=== PATIENT | female | born 1970 | race Caucasian/White ===

== ENCOUNTER 2024-10-17 16:32 | Emergency (ER) | payer OTHER, SELFPAY ==
[2024-10-17 16:47] VITALS: BP 157/73; PULSE 80; RESP 18; TEMP 36.4; O2SAT 99; BMI 27.4
--- NOTE | 2024-10-17 18:05 | DI.CT.S_ITS ---
PROCEDURE: CT HEAD/BRAIN WO CON INDICATIONS: fall hit head TECHNIQUE: Noncontrast 4.5 mm thick angled axial sections acquired from the foramen magnum to the vertex, with coronal and sagittal reformats. For radiation dose reduction, the following was used: automated exposure control, adjustment of mA and/or kV according to patient size. COMPARISON: None. FINDINGS: Image quality: Diagnostic. CSF spaces: Basal cisterns are patent. No extra-axial fluid collections. Ventricles are normal in size and shape. Brain: No midline shift. No intracranial masses or hemorrhage. Ye-white matter interface is normal. Skull and face: Calvarium and visualized facial bones are intact, without suspicious lesions. Sinuses: Visualized sinuses and mastoids are clear. IMPRESSION: No acute intracranial pathology. Dictated by: Josiah Atkins M.D. on 10/17/2024 at 18:22 Approved by: Josiah Atkins M.D. on 10/17/2024 at 18:22
--- NOTE | 2024-10-17 18:14 | DI.CT.S_ITS ---
PROCEDURE: CT CERVICAL SPINE WO CON INDICATIONS: neck pain, s/p fall TECHNIQUE: Noncontrast 3 mm thick sections acquired from the skull base to the T4 level. Sagittal and coronal reformats were then constructed. For radiation dose reduction, the following was used: automated exposure control, adjustment of mA and/or kV according to patient size. COMPARISON: None. FINDINGS: Image quality: Excellent. Bones: No fractures or dislocations. Straightening of normal cervical lordosis is seen. Degenerative endplate changes, loss of disc height and bilateral uncovertebral hypertrophic changes are noted at C5-6 and C6-7 levels causing [id number] central canal stenosis and bilateral neural foraminal narrowing. Visualized superior ribs are intact. Soft tissues: Prevertebral soft tissues are normal in thickness. No paravertebral hematomas. No apical pneumothoraces. IMPRESSION: 1. No displaced fracture or traumatic subluxation. 2. Degenerative disc disease in lower cervical spine as above. Dictated by: Josiah Atkins M.D. on 10/17/2024 at 18:22 Approved by: Josiah Atkins M.D. on 10/17/2024 at 18:23
--- NOTE | 2024-10-17 19:27 | ED.FALL ---
HPI - Fall General Chief Complaint: Fall Stated Complaint: fell at work, pain Time Seen by Provider: 10/17/24 18:05 Source: patient, RN notes reviewed and old records reviewed Mode of arrival: Ambulatory Limitations: no limitations History of Present Illness HPI Narrative: 53-year-old female no reported medical issues who presents with complaint of fall at work. Patient was leaving the kitchen when she tripped or fell on the edge of a rug falling towards her right side striking her cheek shoulder and head. She states it landed on her back as well. Describes little bit of headache neck pain and back pain throughout. States sort of knocked the wind out of her and she saw store stars initially. She felt little bit dizzy that has improved. No nausea or vomiting. No chest pain or shortness of breath. No GI or urinary symptoms otherwise no incontinence. No numbness tingling or weakness. Patient states Tylenol after the fall this evening. States other symptoms currently. She does not take any daily medications. Does not tolerate codeine well but no other drug allergies. Does use tobacco. No anticoagulants Related Data Allergies Allergy/AdvReac Type Severity Reaction Status Date / Time codeine AdvReac Nausea Verified 10/17/24 16:47 Review of Systems Review of Systems ROS Unobtainable: All systems reviewed & are unremarkable except as noted in HPI and below Patient History Social History Smoking Status: Current every day smoker Smoking Status: Current every day smoker tobacco type: vaping Exam Narrative Exam Narrative: GEN: C-collar in ED Patient appears in mild distress. HEAD: No evidence of trauma, no raccoon/[place] sign. NECK: Nontender, painless range of motion, trachea midline Positive Nexus criteria, no midline line tenderness, distracting injury, altered mental status, neuro deficit, recent EtOH. EYES: PERRLA, EOMI ENT: External inspection normal suffer a small area of erythema on the right cheek, trachea is midline, TM's are normal no hemotypanum, Nares are clear, no septal hematoma, no dental or oral injury, airway is normal and with normal occlusion, No bony tenderness RESP: Chest is nontender and has symmetric movement, no ecchymosis, breath sounds are normal no crackles, wheezes or rales CVS: Heart sounds are normal, no murmur noted, No JVD. ABG/GI: Nontender, soft, normal bowel sounds, no distention, no organomegaly NEURO: Oriented AOx3, neuro is grossly intact, sensation and motor is normal all 4 extremities moving, cranial nerves II through XII are intact, GCS is 15 PSYCH: Normal mood and affect SKIN: Intact, warm and dry, no crepitus and without decubitus BACK: No CVA tenderness, no vertebral tenderness, no step-off's, no crepitus EXT: Atraumatic, nontender. Normal color and temperature, normal range of motion of extremities. Initial Vital Signs Initial Vital Signs: Vital Signs Temperature 97.5 F L 10/17/24 16:47 Pulse Rate 80 10/17/24 16:47 Respiratory Rate 18 10/17/24 16:47 Blood Pressure 157/73 H 10/17/24 16:47 Pulse Oximetry 99 10/17/24 16:47 Oxygen Delivery Method Room Air 10/17/24 16:47 Course Orders Ordered: ED Orders 10/17/24 18:05 CT head/brain wo con Stat 10/17/24 18:14 CT cervical spine wo con Stat Discontinued Medications Cyclobenzaprine HCl (Cyclobenzaprine 10 Mg Prepack) 1 bottle MISC DIRECTED ONE Stop: 10/17/24 19:41 Last Admin: 10/17/24 19:51 Dose: 1 bottle Documented By: SB Vital Signs Vital signs: Vital Signs - 8 hr 10/17/24 16:47 Temperature 97.5 F L Pulse Rate 80 Respiratory Rate 18 Blood Pressure 157/73 H Pulse Oximetry 99 Oxygen Delivery Method Room Air MDM - Fall MDM Narrative Medical decision making narrative: 53-year-old female with ground level fall not anticoagulated who had complaint of neck pain not particularly tender but does have discomfort. Imaging was obtained it shows some chronic changes but no acute fractures or bleed. Patient and I discussed may have little bit of mild concussion but otherwise felt appropriate for discharge home. We will give a short course of muscle relaxer, ibuprofen/Tylenol as needed for pain. Discussed return precautions. L&I paperwork completed. Head CT shows no acute change CT cervical space shows no displaced fracture or traumatic subluxation degenerative disc disease lower cervical spine Discharge Plan Departure Patient Disposition: Home Clinical Impression: Cervical sprain, Concussion, Contusion of right cheek Activity Restrictions/Additional Instructions: Your imaging today does show some degenerative disc disease of your lower cervical spine particularly in the C5-6 and C6-7 region showing [id number]-[id number] central canal stenosis and bilateral neural foraminal narrowing. You will likely be more sore tomorrow, I would recommend taking acetaminophen up to a 1000 mg every 6 hours and/or ibuprofen up to 600 mg every 6 needed pain if inadequate can take muscle relaxer 1 tablet every 8 hours needed. Please return for severe headaches, any changes in mentation or confusion, new neck or back pain, new numbness, tingling or weakness, vomiting, new chest pain or shortness of breath, difficulty with ambulation, incontinence or other new or concerning changes. Stand Alone Forms: Patient Portal/API/Survey, Work Release Note
[2024-10-17] MEDS: CYCLOBENZAPRINE 10 MG PREPACK 1 BOTTLE MISC (19:51)
== END 2024-10-17 19:54 | disposition home or self-care (01) ==
PROVIDERS: Emergency Provider Emergency Medicine
DX: S06.0X0A Concussion without loss of consciousness, initial encounter (principal); S13.9XXA Sprain of joints and ligaments of unspecified parts of neck, initial encounter; S00.83XA Contusion of other part of head, initial encounter; R42 Dizziness and giddiness; W01.198A Fall on same level from slipping, tripping and stumbling with subsequent striking against other object, initial encounter
CPT/HCPCS: 70450; 72125; 99281; 99284